=== PATIENT | male | born 2005 | race Hispanic/Latino ===

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

== ENCOUNTER 2025-02-21 18:42 | Emergency (ER) | payer OTHER, SELFPAY ==
[2025-02-21] MEDS ORDERED: Acetaminophen 500 MG TAB ONE (19:09)
== END 2025-02-21 20:00 | disposition home or self-care (01) ==
LOC: MADERS 18:42
DX: S06.0XAA Concussion with loss of consciousness status unknown, initial encounter (principal); R29.702 NIHSS score 2; Y04.0XXA Assault by unarmed brawl or fight, initial encounter
CPT/HCPCS: 70450; 72125

== ENCOUNTER 2025-02-25 14:12 | Outpatient (CLI) | payer OTHER | END 2025-02-25 14:13 | disposition home or self-care (01) | LOC: MADRAD 14:12 | PROVIDERS: ATTEND Family Medicine | DX: M25.532 Pain in left wrist (principal) ==